=== PATIENT | male | born 1985 | race Caucasian/White ===

== ENCOUNTER 2016-11-30 22:36 | Emergency (ER) | payer OTHER, MEDICAID ==
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
[2016-11-30] MEDS ORDERED: OXYCODONE/APAP 5/325MG PREPACK#4 BTL TAKEHOME ONE (22:41)
[2016-11-30 22:55] VITALS: TEMP 99; O2SAT 94
[2016-11-30 23:17] VITALS: BP 112/73; PULSE 98; RESP 18
== END 2016-11-30 23:17 | disposition home or self-care (01) ==
DX: S80.211A Abrasion, right knee, initial encounter (principal); V03.00XA Pedestrian on foot injured in collision with car, pick-up truck or van in nontraffic accident, initial encounter